=== PATIENT | male | born 1955 | race Two or more races ===

== ENCOUNTER 2020-08-02 15:53 | Inpatient (IN) | payer MEDICARE, OTHER ==
[~2020-08-02] VITALS: Ht 170.2 cm; Wt 76.2 kg
[2020-08-02] MEDS ORDERED: ACETAMINOPHEN 325 MG TABLET PO PRN (19:00)
[2020-08-02] MEDS ORDERED: BLOOD SUGAR DIAGNOSTIC 1 EACH STRIP IN ONE (19:00)
[2020-08-02] MEDS ORDERED: MAGNESIUM HYDROXIDE 30 ML UDC PO PRN (19:00)
[2020-08-02] MEDS ORDERED: LORAZEPAM 0.5 MG TABLET PO PRN (19:00)
[2020-08-02] MEDS ORDERED: MAG HYDROX/AL HYDROX/SIMETH 30 ML UDC PO PRN (19:00)
[2020-08-02] MEDS ORDERED: TEMAZEPAM 15 MG CAPSULE PO PRN (19:00)
[2020-08-02 20:10] VITALS: BP 121/66
[2020-08-02 22:03] VITALS: BP 121/66
--- NOTE | 2020-08-02 22:25 | NUR ---
GPS RN NOTE: ADMISSION NOTE RECEIVED PT FROM ER @ 1900, PT IS A 65 Y/O MALE, ON A 5150 DUE TO GD, PER HOLD PT WAS FOUND ON THE STREET A [place] CITIZEN CALLED THE POLICE AND REPORTED THAT THE PT WAS FOUND ON THE SIDE OF THE ROAD IN THE [facility] PASS, INCOHERENT, TALKING TO SELF AND HAD NO FOOD OR WATER PT STATES HE WAS "TRAVELING THROUGH TIME". PT WAS IS A/O X3, ALERT, CALM, COOPERATIVE, ISOLATIVE, FLAT, BLUNTED AFFECT, DISHEVELED APPEARANCE, DISORGANIZED THINKING, AMBULATORY, CONTINENT. SKIN ASSESSMENT DONE PICTURES PLACED IN CHART ENCOURAGED SHOWER PT REFUSED, PT HAS NO MEDICAL HX, DENIES MEDICAL HX OTHER THAN HAVING LEFT KNEE PAIN FROM TIME TO TIME DUE TO DOING PT STATES "FLIPS FOR FUN". PT DENIES PAIN AT THIS TIME, VITAL SIGNS STABLE. PT HAS PSYCH HX OF SCHIZOPHRENIA, WHEN ASKED THE PT WHY HE IS HERE PT STATES "FROM WHAT I KNOW FOR AN EVALUATION, TO GET HELP I GUESS". PT DENIES SI/HI, DENIES AVH VOICES AT THIS TIME. PT IS A SMOKER, STATES HE SPOKES 1-2PACK A DAY BUT REFUSES A NICOTINE PATCH OR HELP TO QUIT, STATES "I DONT WANT TO QUIT RIGHT NOW" STATES HE DOESNT DRINK, HE WAS 32 YEARS YEN FROM [facility] BUT JUST RECENTLY RELAPSED ON 08/01. HE STATES "I USE WHATEVER I CAN GET", [place] CAME BACK + FOR AMPHETAMINES ON 08/02/20. PT DENIES BEING HOMELESS STATES HE LIVES IN AN APARTMENT WITH FRIENDS AND GF. SPOKE TO FAMILY, PT ADVISED OF HOLD, PT RIGHTS HANDBOOK WAS GIVEN TO PT. PT WILL BE UNDER THE PSYCHIATRIC CARE OF DR. HARTMAN AND THE MEDICAL CARE OF DR. RAMÍREZ. ALL NEEDS MET AT THIS TIME, WILL CONTINUE TO MONITOR Q15MIN FOR SAFETY AND BEHAVIOR. WILL REASSESS AND CONTINUE TO MONITOR Q15 MIN FOR SAFETY AND BEHAVIOR.
--- NOTE | 2020-08-02 22:40 | NUR ---
GPS RN NOTE: SPOKE TO DRUG ENFORCEMENT AGENT DR. IRIZARRY NOTIFIED OF PT ARRIVAL ON THE UNIT AND BACKGROUND OF PT, STATED "GOT IT WILL LOOK INTO IT". WILL CONTINUE TO MONITOR Q15 MIN FOR SAFETY AND BEHAVIOR.
--- NOTE | 2020-08-02 23:14 | NUR ---
GPS RN NOTE: FAMILY NOTIFIED SPOKE TO HELENA AND DAUGHTER SAMI ON THE PHONE 2
--- NOTE | 2020-08-02 23:15 | NUR ---
GPS RN NOTE: FAMILY NOTIFIED SPOKE TO SPOUSE HELENA AND DAUGHTER SAMI ON THE PHONE, DAUGHTER SAMI STATED HER FATHER HAS NO MEDICAL HX, HAS HX OF SCHIZOPHRENIA AND HE USED TO TAKE MEDICATION FOR IT IN THE PAST, DOES NOT KNOW IF HE CURRENTLY OR HAS EVER KEPT UP WITH PSYCHOTROPIC MEDICATION. STATED HE STRUGGLES WITH OFF AND ON SUBSTANCE ABUSE BUT HAS A LOT OF SUPPORT FROM THE FAMILY, WILL CONTINUE TO MONITOR Q15MIN FOR SAFETY AND BEHAVIOR.
[2020-08-03 08:00] VITALS: BP 123/66
--- NOTE | 2020-08-03 14:41 | NUR ---
Family Contact: SW called the pts partner, Alejandra ([phone]), and she stated that the pt has a residence and that he can return to it because it is a safe place for him. She stated that the pt was just confused due to dehydration and the heat and got placed on a hold and was listed as homeless.
[2020-08-03 14:58] LABS: ALBUMIN 3.4 g/dL (3.4-5.0); BILIRUBIN,TOTAL 0.5 mg/dL (0.2-1.0); CALCIUM, SERUM 8.1 mg/dL (8.5-10.1); CREATININE 0.8 mg/dL (0.6-1.3); POTASSIUM 4.2 mmol/L (3.5-5.1); TOTAL PROTEIN, SERUM 6.6 g/dL (6.4-8.2)
--- NOTE | 2020-08-03 15:30 | NUR ---
Initial Discharge Plan: Pt currently resides at his apartment located at [address] [place] [address], [place] [address]; ([phone]). Per pt, he would like to return to his home. SW will work with the pt and the MD regarding appropriate discharge planning. SW will form a safe and proper discharge.
[2020-08-03 16:00] VITALS: BP 146/87
[2020-08-03 16:03] LABS: CHOLESTEROL 164 mg/dL (<200); HDL CHOLESTEROL 49 mg/dL (40-60); LDL 100 mg/dL (0-99); TRIGLYCERIDES 70 mg/dL (30-150)
[2020-08-03] MEDS: QUETIAPINE FUMARATE 25 MG TABLET PO SCH (19:26)
[2020-08-03 19:58] VITALS: BP 127/73
[2020-08-04] MEDS: QUETIAPINE FUMARATE 25 MG TABLET PO SCH ×2 (06:08→17:07)
[2020-08-04 06:24] LABS: BASOPHILS % (AUTO) 0.4 % (0.0-2.0); EOSINOPHILS % (AUTO) 3.7 % (0.0-6.0); HEMATOCRIT 38 % (39-51); HEMOGLOBIN 13.1 g/dL (13.5-17.5); LYMPHOCYTES # (AUTO) 2.4 /CMM (0.8-4.8); MEAN CORPUSCULAR HGB CONC 34 g/dl (31.0-36.0); MEAN CORPUSCULAR VOLUME 92 fL (80-96); MONOCYTES # (AUTO) 0.5 /CMM (0.1-1.30); MONOCYTES % (AUTO) 7.8 % (2.0-12.0); NEUTROPHILS # (AUTO) 3.1 /CMM (1.8-8.9); NEUTROPHILS % (AUTO) 50.1 % (43.0-81.0); PLATELET COUNT (AUTO) 236 /CMM (150-450); RED BLOOD CELL COUNT(AUTO) 4.14 MIL/uL (4.5-6.0); WHITE BLOOD COUNT (AUTO) 6.2 K/uL (4.3-11.0)
--- NOTE | 2020-08-04 06:35 | NUR ---
GPS RN NOTES: PT SLEPT WELL AT NIGHT, COOPERATIVE AT THIS TIME. REFUSED AM LABS BUT AGREED AFTER EXPLANATION WAS PROVIDED. NO S/S OF DISTRESS NOTED. NO CHANGE OF CONDITION NOTED, NO BEHAVIOR PROBLEMS NOTED, ALL CARE NEEDS MET ANTICIPATED. WILL CONTINUE TO MONITOR FOR SAFETY BEHAVIOR, AND ENDORSE TO AM SHIFT FOR CONTINUITY OF CARE .
[2020-08-04 06:37] LABS: CREATININE 0.8 mg/dL (0.6-1.3); MAGNESIUM 1.8 mg/dL (1.8-2.4); PHOSPHORUS 2.7 mg/dL (2.5-4.9); POTASSIUM 4.1 mmol/L (3.5-5.1)
[2020-08-04 08:00] VITALS: BP 144/70
--- NOTE | 2020-08-04 09:04 | NUR ---
WOUND CARE CONSULT: PT PRESENTS WITH VERY SLIGHT REDNESS TO BUTTOCKS, DRY SCAB TO LEFT KNEE WITH DISCOLORATION TO LEFT THIGH, PRESENT ON ADMISSION. PT STATES THAT HE PUT DRY ICE ON HIS LEFT LEG AND IT STUCK. PT IS AMBULATORY AND CONTINENT WITH CURRENT ALYSSA SCORE OF 22. WILL SEE PRN. Addendum: 08/04/20 at 0906 by LEANA TAI WNDNU Amended: Links added.
[2020-08-04] MEDS ORDERED: Z GUARD REMEDY 2 OZ OINT TP PRN (09:30)
[2020-08-04 16:00] VITALS: BP 138/75
--- NOTE | 2020-08-04 19:58 | NUR ---
GPS RN NOTES RECEIVED PATIENT IN SITTING IN HALLWAY CHAIR, NO S/S OF COMPLAINTS. PATIENT DOES NOT DISPLAY ANY S/S OF DISTRESS. BREATHING EVEN AND UNLABORED. PT IS ALERT AND ORIENTED X 3 . MED COMPLIANT. PT IS COOPERATIVE AND CALM. PATIENT DENIES SI AND HI. SAFETY PRECAUTIONS IN PLACE, BED IN LOWEST POSITION, LOCKED, AND CALL LIGHT KEPT WITHIN REACH. WILL CONTINUE TO MONITOR.
[2020-08-04 20:00] VITALS: BP 139/79
[2020-08-04 20:16] VITALS: BP 142/77
[2020-08-05] MEDS: QUETIAPINE FUMARATE 25 MG TABLET PO SCH ×3 (05:22→21:24)
[2020-08-05 08:00] VITALS: BP 150/88
[2020-08-05 16:00] VITALS: BP 129/79
--- NOTE | 2020-08-05 16:31 | NUR ---
PT. CUT HIS RIGHT WRIST WITH A PLASTIC SPOON AND SAYING HE WANTED TO . ABRASIONS NOTED ON HIS RIGHT WRIST. DR. BURTON MADE AWARE AND ORDERED 1:1 FOR SAFETY. TECHNICAL DATA ANALYST MADE AWARE. Addendum: 08/05/20 at 1659 by SUNNY LESLIE RN above notes in not for this pt.
[2020-08-05 20:16] VITALS: BP 164/95
[2020-08-05 21:33] VITALS: BP 134/77
[2020-08-06 08:00] VITALS: BP 161/84
[2020-08-06] MEDS: QUETIAPINE FUMARATE 25 MG TABLET PO SCH ×2 (08:27→21:37)
--- NOTE | 2020-08-06 09:00 | NUR ---
RN NOTE- PT CALM DIRECTABLE GUARDED THOUGH PASSIVE AND INTERACTIVE. VISIBLE ON UNIT AND IN DAY ROOM WATCHES TV TALKS W PEERS AND STAFF A BIT. MED COMPLIANT DENIES ALL
--- NOTE | 2020-08-06 13:35 | NUR ---
Family Contact: SW called the pts daughter, Mary ([phone]), and left a voicemail asking for a call back to discuss the pts discharge plan and treatment plan.
--- NOTE | 2020-08-06 13:46 | NUR ---
Family Contact: SW called the pts partner, Alejandra ([phone]), and left a voicemail to inform her that the pt is going to be discharged on and the SW would like a call to arrange this pts transportation.
[2020-08-06 16:00] VITALS: BP 121/88
[2020-08-06 20:06] VITALS: BP 148/81
[2020-08-07 08:00] VITALS: BP 141/64
--- NOTE | 2020-08-07 10:30 | NUR ---
am meds given late as pt. very drowsy.
[2020-08-07] MEDS: QUETIAPINE FUMARATE 25 MG TABLET PO SCH ×2 (10:33→21:30)
[2020-08-07 16:00] VITALS: BP 107/60
--- NOTE | 2020-08-07 19:42 | NUR ---
GPS RN NOTE: PAIN PT. C/O OF BACK PAIN. ADMINISTERED TYLENOL 650 MG PO PRN ORDERED. WILL CONTINUE TO MONITOR FOR SAFETY AND BEHAVIOR.
[2020-08-07 20:00] VITALS: BP 139/70
[2020-08-08] MEDS: QUETIAPINE FUMARATE 25 MG TABLET PO SCH ×2 (07:34→20:23)
[2020-08-08 08:00] VITALS: BP 129/58
[2020-08-08 16:00] VITALS: BP 141/84
[2020-08-08 19:40] VITALS: BP 141/79
[2020-08-09 08:00] VITALS: BP 137/78
[2020-08-09] MEDS: QUETIAPINE FUMARATE 25 MG TABLET PO SCH ×2 (08:14→20:57)
--- NOTE | 2020-08-09 09:50 | NUR ---
SW Coordination of Care: This clinical writer spoke with Katherine chandlertionist ([phone]) [place] [address]. Scheduled for LABORER MARINE TERMINAL, Rashida Dhillon and psychiatrist Sade Schroeder scheduled for 08/13 at 1:30PM.
[2020-08-09 16:00] VITALS: BP 159/72
[2020-08-09 19:50] VITALS: BP 127/75
[2020-08-10 08:00] VITALS: BP 155/74
[2020-08-10] MEDS: QUETIAPINE FUMARATE 25 MG TABLET PO SCH ×2 (08:32→21:55)
[2020-08-10] MEDS ORDERED: SERTRALINE HCL 50 MG TABLET PO SCH (09:00)
--- NOTE | 2020-08-10 09:00 | NUR ---
RN NOTE- PT QUIET AND WITHDRAWN FA[facility] E[facility] CONTACT INITIATES CONVERSATION A BIT CONFUSED DENYING SI HI AH VH PO INTAKE GOOD MED COMPLIANT
[2020-08-10 16:00] VITALS: BP 141/73
[2020-08-10 19:54] VITALS: BP 155/87
[2020-08-10] MEDS: SERTRALINE HCL 50 MG TABLET PO SCH (21:55)
--- NOTE | 2020-08-11 06:58 | NUR ---
GPS RN CLOSING NOTES: PT IS LAYING ON BED AWAKE. NO BEHAVIORAL ISSUES THIS SHIFT. MED COMPLIANT. PT SLEPT FOR 5HR. NO S/S OF DISTRESS, RESPIRATION EVEN AND UNLABORED WITH EQUAL RISE AND FALL OF THE CHEST ON ROOM AIR. ALL PT CARE NEEDS MET ANTICIPATED. WILL CONTINUE TO MONITOR AND ENDORSE TO AM SHIFT.
[2020-08-11 08:00] VITALS: BP 155/88
[2020-08-11] MEDS: QUETIAPINE FUMARATE 25 MG TABLET PO SCH ×2 (08:33→21:22)
--- NOTE | 2020-08-11 12:31 | NUR ---
ELVIN Family Contact: This card writer hand contacted Family the pts partner, Alejandra ([phone]) and left a detailed voicemail that pt will be discharged 08/13.
[2020-08-11 16:00] VITALS: BP 153/71
[2020-08-11 20:04] VITALS: BP 143/80
[2020-08-11] MEDS: SERTRALINE HCL 50 MG TABLET PO SCH (21:22)
[2020-08-12] MEDS: QUETIAPINE FUMARATE 25 MG TABLET PO SCH ×2 (08:05→21:27)
--- NOTE | 2020-08-12 08:09 | NUR ---
SW Family Contact: mold yard worker spoke with Alejandra pt's partner ([phone]) and will medicinal plant picker pt tomorrow 08/13 at 1PM.
[2020-08-12 08:51] VITALS: BP 154/74
--- NOTE | 2020-08-12 09:23 | NUR ---
SW Coordination of Care: This video game script writer spoke with Jennifer production supv ([phone]) [place] [address]. Scheduled for INTELLIGENCE OFFICER, Rashida Dhillon on August 16 at 1PM and psychiatrist Sade Schroeder scheduled for 08/20 at 1:30PM. This video game script writer rescheduled appointments.
[2020-08-12 16:00] VITALS: BP 105/62
[2020-08-12 20:00] VITALS: BP 127/68
[2020-08-12 20:03] VITALS: BP 127/68
[2020-08-12] MEDS: SERTRALINE HCL 50 MG TABLET PO SCH (21:27)
[2020-08-13 08:00] VITALS: BP 136/87
--- NOTE | 2020-08-13 08:14 | NUR ---
SW Discharge Note: Patient will be discharged back home at [address] [place] [address] Dr Rianna Dorantes, [place] [address]; ([phone]). Patients partner Alejandra ([phone]) will pick remover patient at 1PM. Patients partner Alejandra ([phone]) is aware and agreeable with discharge plan. Patient appeared alert and oriented x4. Patient is agreeable and aware of discharge. Upon discharge, patient appear to be calm, cooperative and happy to be going home. Patient denies suicidal and homicidal ideation. Patient will follow up with CUSTOMER SERVICE REPRESENTATIVE TEACHER, Rashida Dhillon located at [address] [address] on August 16 at 1PM and will follow up with (psychiatrist) Dr. Schroeder at [facility] on August 20 at 1:30PM. Patient appeared with euthymic mood and congruent affect.
[2020-08-13] MEDS: QUETIAPINE FUMARATE 25 MG TABLET PO SCH (09:06)
--- NOTE | 2020-08-13 12:46 | NUR ---
GPS/RN-NOTES RECEIVED DISCHARGE ORDER FROM DR. HARTMAN ( PSYCHIATRIST), ALSO TYREE TORRES ( SET O TYPE OPERATOR) MADE AWARE OF THE DISCHARGE. PATIENT WAS DISCHARGE HOME. ALL DISCHARGE MEDICATIONS WAS REVIEWED WITH THE PATIENT WITH UNDERSTANDING. RX AND ALL DISCHARGE PAPERS WAS GIVEN TO HIM. PATIENT DID NOT VERBALIZE SI/HI,DENIES VISUAL/AUDITORY HALLUCINATIONS AT THE TIME OF DISCHARGE. PATIENT STRONGLY REFUSED FULL BODY ASSESSMENTS PRIOR TO DISCHARGE DESPITE EXPLANATIONS OF HOSPITAL POLICIES. CHARGE NURSE AWARE.PATIENT LEFT THE UNIT IN STABLE CONDITION ALERT ORIENTED X4 AMBULATORY STEADY GAIT. INSTRUCTED PATIENT GO TO THE NEAREST EMERGENCY FACILITY OR CALL 911 IN CASE OF EMERGENCY AND TO FOLLOW UP WITH PCP AND PSYCHIATRIST IN A WEEK OR NEEDED. PATIENT WAS ACCOMPANIED BY ONE CHICKEN TENDER STAFF IN THE LOBBY FOR SAFETY. MASK WAS GIVEN TO THE PATIENT. FRIT MAKER BY JAVIER MALIK VIA PRIVATE CAR.
== END 2020-08-13 12:45 | disposition home or self-care (01) | DRG 881 ==
LOC: GPS 18:39
PROVIDERS: ADMIT Psychiatry & Neurology Psychiatry; ATTEND Nurse Practitioner Acute Care
DX: F32.9 Major depressive disorder, single episode, unspecified (principal); F29 Unspecified psychosis not due to a substance or known physiological condition; F41.9 Anxiety disorder, unspecified; F20.9 Schizophrenia, unspecified; Z59.0 Homelessness; F19.90 Other psychoactive substance use, unspecified, uncomplicated; E86.0 Dehydration; G31.84 Mild cognitive impairment of uncertain or unknown etiology; F17.200 Nicotine dependence, unspecified, uncomplicated
CPT/HCPCS: 36415; 80048-TC; 80053-TC; 80061-TC; 82962-TC; 83735-TC; 84100-TC; 85025-TC; 87081-TC